=== PATIENT | female | born 1995 | race Caucasian/White ===

== ENCOUNTER → 2017-08-10 | Outpatient (REF) | LOC: WSOH 09:20 | DX: Z02.1 Encounter for pre-employment examination (principal) ==

== ENCOUNTER → 2017-08-12 | Outpatient (REF) | LOC: WSOH 12:15 | DX: Z02.89 Encounter for other administrative examinations (principal) ==

== ENCOUNTER → 2017-08-19 | Outpatient (REF) | LOC: WSOH 14:29 | DX: Z02.89 Encounter for other administrative examinations (principal) ==